=== PATIENT | female | born 1970 | race Caucasian/White ===

== ENCOUNTER → 2017-01-27 | Outpatient (CLI) | payer OTHER ==
--- NOTE | 2017-01-27 14:11 | MM ---
Reason for exam: screening (asymptomatic). Last mammogram was performed 1 year and 1 month ago. History: Family history of breast cancer in maternal grandmother at age 50 and breast cancer in maternal aunt at age 30. Retro-pectoral saline implants in both breasts, November 2004. Took hormonal contraceptives for 21 years beginning at age 17. Physical Findings: A clinical breast exam by your physician is recommended on an annual basis and results should be correlated with mammographic findings. MG 3D Screen Mammo Imp/Cad Bilateral CC, MLO, and ID view(s) were taken. Prior study comparison: December 15, 2015, bilateral MG 3d screen mammo imp/cad. December 11, 2014, bilateral MG diagnostic mammo w CAD SUZANNE. The breast tissue is heterogeneously dense. This may lower the sensitivity of mammography. No calcifications. Bilateral implants are intact. No significant changes when compared with prior studies. ASSESSMENT: Negative, BI-RAD 1 RECOMMENDATION: Routine screening mammogram of both breasts in 1 year.
== END | disposition home or self-care (01) ==
LOC: RADMAMWWP 06:56
PROVIDERS: ATTEND Obstetrics & Gynecology
DX: Z12.31 Encounter for screening mammogram for malignant neoplasm of breast (principal); Z80.3 Family history of malignant neoplasm of breast; Z98.82 Breast implant status
CPT/HCPCS: 77063; G0202

== ENCOUNTER → 2018-01-30 | Outpatient (CLI) | payer OTHER ==
--- NOTE | 2018-01-31 08:31 | MM ---
Reason for exam: screening (asymptomatic). Last mammogram was performed 1 year ago. History: Family history of breast cancer in maternal grandmother at age 50 and breast cancer in maternal aunt at age 30. Retro-pectoral saline implants in both breasts, November 2004. Took hormonal contraceptives for 21 years beginning at age 17. Physical Findings: A clinical breast exam by your physician is recommended on an annual basis and results should be correlated with mammographic findings. MG Screening Mammo Implant/CAD Bilateral CC, MLO, and ID view(s) were taken. Prior study comparison: January 27, 2017, bilateral MG 3d screen mammo imp/cad. December 15, 2015, bilateral MG 3d screen mammo imp/cad. The breast tissue is extremely dense which could obscure a lesion on mammography. There is no discrete abnormality. Bilateral subglandular implants. ASSESSMENT: Benign, BI-RAD 2 RECOMMENDATION: Routine screening mammogram of both breasts in 1 year.
== END | disposition home or self-care (01) ==
LOC: RADMAMWWP 06:58
PROVIDERS: ATTEND Obstetrics & Gynecology
DX: Z12.31 Encounter for screening mammogram for malignant neoplasm of breast (principal); Z98.82 Breast implant status
CPT/HCPCS: 77067

== ENCOUNTER → 2018-02-10 | Outpatient (CLI) | payer OTHER ==
--- NOTE | 2018-02-10 17:30 | US ---
EXAMINATION TYPE: US transvaginal DATE OF EXAM: 02/10/2018 COMPARISON: US CLINICAL HISTORY: N92.0 MENORRHAGIA. TECHNIQUE: Transvaginal (TV). Date of LMP: 01/26/2018 EXAM MEASUREMENTS: Uterus: 8.4 x 4.2 x 6.3 cm Endometrial Stripe: 0.5 cm Right Ovary: 2.8 x 1.7 x 1.5 cm Left Ovary: 3.9 x 2.5 x 3.7 cm 1. Uterus: Anteverted wnl 2. Endometrium: wnl 3. Right Ovary: wnl 4. Left Ovary: cyst measures 3.2 x 2.2 x 2.2 cm 5. Bilateral Adnexa: wnl 6. Posterior cul-de-sac: no free fluid IMPRESSION: Normal uterus and endometrium. 3 x 2 cm left ovarian cyst. No solid adnexal mass. No free fluid.
== END | disposition home or self-care (01) ==
LOC: RADUSWWP 16:53
PROVIDERS: ATTEND Obstetrics & Gynecology
DX: N83.202 Unspecified ovarian cyst, left side (principal)
CPT/HCPCS: 76830

== ENCOUNTER → 2019-02-01 | Outpatient (CLI) | payer OTHER ==
--- NOTE | 2019-02-02 11:33 | MM ---
Reason for exam: screening (asymptomatic). Last mammogram was performed 1 year ago. History: Family history of breast cancer in maternal grandmother at age 50 and breast cancer in maternal aunt at age 30. Retro-pectoral saline implants in both breasts, November 2004. Took hormonal contraceptives for 21 years beginning at age 17. Physical Findings: A clinical breast exam by your physician is recommended on an annual basis and results should be correlated with mammographic findings. MG 3D Screen Mammo Imp/Cad Bilateral CC, MLO, and ID view(s) were taken. Prior study comparison: January 30, 2018, bilateral MG screening mammo implant/CAD. January 27, 2017, bilateral MG 3d screen mammo imp/cad. The breast tissue is extremely dense which could obscure a lesion on mammography. Bilateral breast prothesis. No significant changes when compared with prior studies. ASSESSMENT: Benign, BI-RAD 2 RECOMMENDATION: Routine screening mammogram of both breasts in 1 year.
== END ==
LOC: RADMAMWWP 07:01
PROVIDERS: ATTEND Obstetrics & Gynecology
DX: Z12.31 Encounter for screening mammogram for malignant neoplasm of breast (principal)
CPT/HCPCS: 77063; 77067

== ENCOUNTER → 2019-05-04 | Outpatient (CLI) | payer OTHER ==
[2019-05-04 07:21] LABS: Basophils # (A) 0.1 k/uL (0-0.2); Basophils % (A) 1 %; Eosinophils # (A) 0.2 k/uL (0-0.7); Eosinophils % (A) 4 %; HCT 41.9 % (34.0-46.0); HGB 13.8 gm/dL (11.4-16.0); Lymphocytes # (A) 1.8 k/uL (1.0-4.8); Lymphocytes % (A) 38 %; MCH 32.9 pg (25.0-35.0); MCHC 32.9 g/dL (31.0-37.0); Mean Platelet Volume 7.6; Monocytes # (A) 0.4 k/uL (0-1.0); Monocytes % (A) 8 %; Neutrophils # (A) 2.2 k/uL (1.3-7.7); Neutrophils % (A) 46 %; Platelet Count 168 k/uL (150-450); RBC 4.19 m/uL (3.80-5.40); RDW 14.2 % (11.5-15.5); WBC 4.7 k/uL (3.8-10.6)
== END ==
LOC: LABPAT 06:55
PROVIDERS: ATTEND Obstetrics & Gynecology
DX: Z01.812 Encounter for preprocedural laboratory examination (principal)
CPT/HCPCS: 36415; 85025

== ENCOUNTER → 2019-05-08 | Outpatient (CLI) | payer OTHER | END | disposition home or self-care (01) | LOC: LABWHC1 17:19 | PROVIDERS: ATTEND Family Medicine | DX: Z11.2 Encounter for screening for other bacterial diseases (principal) | CPT/HCPCS: 36415; 86592; 86780 ==

== ENCOUNTER 2019-05-14 06:34 | Day surgery (SDC) | payer OTHER ==
[2019-05-08 15:08] VITALS: BMI 18.8
--- NOTE | 2019-05-13 12:07 | P.HPOB ---
History of Present Illness H&P Date: 05/13/19 Chief Complaint: Menorrhagia This patient is a pleasant 48 yr female with longstanding menorrhagia who is presenting for endometrial ablation. Evaluation has included an endometrial biopsy and ultrasound, both of which were normal. Partner has had a vasectomy and she has tried OCPs in the past. Review of Systems Genitourinary: Reports menorrhagia Past Medical History Past Medical History: Eye Disorder Additional Past Medical History / Comment(s): Dry eye. Recent episode of bilateral Iritis, was on eye drops. Back pain. POTS syndrome History of Any Multi-Drug Resistant Organisms: None Reported Past Surgical History: Breast Surgery, Hernia Repair Additional Past Surgical History / Comment(s): Umbilical hernia repair, inguinal hernia repair, breast augmentation, lasik eye surgery. Past Anesthesia/Blood Transfusion Reactions: No Reported Reaction Past Psychological History: No Psychological Hx Reported Smoking Status: Former smoker Past Alcohol Use History: Rare Additional Past Alcohol Use History / Comment(s): Smoked socially in high school, none since. Past Drug Use History: None Reported - Past Family History Father Family Medical History: Cancer Additional Family Medical History / Comment(s): Melanoma. Medications and Allergies Home Medications Medication Instructions Recorded Confirmed Type Multivitamins, Thera [Multivitamin 1 tab PO DAILY 05/08/19 05/08/19 History (formulary)] Allergies Allergy/AdvReac Type Severity Reaction Status Date / Time sulfamethoxazole Allergy Rash/Hives Verified 05/08/19 15:10 [From Bactrim] trimethoprim [From Bactrim] Allergy Rash/Hives Verified 05/08/19 15:10 Exam - OBG Physical Exam Abdomen: bowel sounds normal, no diffuse tenderness, no bruit present, no guarding noted, no hepatomegaly, no splenomegaly, no mass Vulva: both: normal Vagina: normal moisture, no discharge Cervix: no lesion, no discharge Uterus: normal size, normal contour Adnexa: both: normal Assessment and Plan Assessment: This is a pleasant 48 yr female with long standing menorrhagia requesting endometrial ablation for treatment. Plan is hysteroscopy, D&C, and Novasure endometrial ablation. I have discussed this surgery in detail with Yesenia including its risks: infection, bleeding, possible uterine perforation and/or thermal injury. All of her questions have been answered and a written consent obtained. (1) Menorrhagia Status: Acute Code(s): N92.0 - EXCESSIVE AND FREQUENT MENSTRUATION WITH REGULAR CYCLE SNOMED Code(s): 738728426
[~2019-05-14 06:34] MED LIST: DEXAMETHASONE SOD PHOSPHATE 10 MG/ML 1 ML VIAL IV ONE; LACTATED RINGERS 1,000 ML IV SCH; LIDOCAINE 1% 20 ML VIAL (10MG/ML) FOR IV START INTRADERMA PRN; MIDAZOLAM 2 MG/2 ML VIAL IV PRN; Pre Op ABX Message 1 EACH MISC MISCELLANE ONE; fentaNYL (PF) 50 MCG/ML 2 ML AMP IV PRN
[2019-05-14] MEDS ORDERED: KETOROLAC 30 MG/ML 1 ML VIAL ONE (07:19)
[2019-05-14] MEDS ORDERED: fentaNYL (PF) 50 MCG/ML 2 ML AMP ONE (07:19)
[2019-05-14] MEDS ORDERED: LIDOCAINE 1% INJ 10MG/ML (20 ML MDV) ONE (07:19)
[2019-05-14] MEDS ORDERED: PROPOFOL 10 MG/ML 20 ML VIAL IV ONE (07:19)
[2019-05-14] MEDS ORDERED: MIDAZOLAM 2 MG/2 ML VIAL ONE (07:19)
--- NOTE | 2019-05-14 07:56 | P.OP ---
Date of Procedure: 05/14/19 Preoperative Diagnosis: Menorrhagia Postoperative Diagnosis: Same Procedure(s) Performed: #1: Hysteroscopy. #2: Dilation and curettage. #3: NovaSure endometrial ablation. Anesthesia: other (LMA) Surgeon: Finesse Nascimento Estimated Blood Loss (ml): 10 Urine output (ml): 20 Pathology: other (Uterine curettings) Condition: stable Disposition: PACU Indications for Procedure: Please see dictated H&P for intimate details of this patient's admission. Brief summary this is a pleasant 48-year-old 2 para 2 female with long- standing menorrhagia requesting NovaSure endometrial ablation for treatment. Patient I discussed the surgery and risks including risks of infection, bleeding, possible uterine perforation, and/or thermal injury. All the patient's questions are answered and a written consent is obtained. Operative Findings: This patient had a normal-appearing intrauterine cavity. The uterus sounded to 9 cm. There is no evidence of intrauterine polyps, fibroids, or other growths. Description of Procedure: This patient is taken to the operating room where she is laid in the supine position. She subsequent undergoes general anesthesia without incident. With an adequate level of anesthesia she's placed in dorsal lithotomy position. She has a vaginal perineal prep and drape at this time. Examination under anesthesia shows a mid position uterus of normal size. I placed a weighted speculum posterior vagina. The bladder is drained for 20 mL of clear urine. An anterior lip of the cervix is then grasped with the Allis clamp. I did sound the uterus to 9 cm mid position. Gentle dilation is then done of the cervix to allow the hysteroscope easily and the uterine cavity. Using saline solution hysteroscopy is performed and the cavity length was calculated to be 6.0 cm. With this done the hysteroscope was then removed. Cervix dilated gently more to allow a small curette easily and the uterine cavity. A gentle but 4 quadrant curettage is done for adequate sampling. With this completed the NovaSure device is then opened and appears to be intact. I set at a length of 6.0 cm it is then gently seated into the uterine cavity it opens up to a width of 4.6 cm. Once seated in place I then activate the cavity integrity test and it passes. The NovaSure device is then enabled at 152 W setting and does operate for 121 seconds. With this done the NovaSure device is then removed and appears to be intact. Hysteroscopy is then performed again and the uterine cavity appears to be completely ablated up to the endocervix. At this point the procedure is ended. The Allis clamp and weighted speculum removed. All counts are correct 3. There are no complications. Patient is awakened from anesthesia and taken to the recovery room in satisfactory condition.
[2019-05-14 08:05] VITALS: TEMP 98
[2019-05-14 08:21] VITALS: RESP 16
[2019-05-14 08:55] VITALS: BP 117/80; PULSE 57
== END 2019-05-14 09:30 | disposition home or self-care (01) ==
LOC: OR 06:34
PROVIDERS: ATTEND Obstetrics & Gynecology
DX: N92.0 Excessive and frequent menstruation with regular cycle (principal); K21.9 Gastro-esophageal reflux disease without esophagitis; H20.9 Unspecified iridocyclitis; H04.129 Dry eye syndrome of unspecified lacrimal gland; M54.9 Dorsalgia, unspecified; I49.8 Other specified cardiac arrhythmias; Z87.891 Personal history of nicotine dependence; Z79.899 Other long term (current) drug therapy; Z88.2 Allergy status to sulfonamides; Z80.8 Family history of malignant neoplasm of other organs or systems
CPT/HCPCS: 58563; 81025; 88305; 84703; J2250; J1100; J2001; J3010; J1885; J2704

== ENCOUNTER → 2020-06-17 | Outpatient (CLI) | payer OTHER ==
--- NOTE | 2020-06-17 10:07 | MM ---
Reason for exam: screening (asymptomatic). Last mammogram was performed 1 year and 4 months ago. History: Family history of breast cancer in maternal grandmother at age 50 and breast cancer in maternal aunt at age 30. Retro-pectoral saline implants in both breasts, November 2004. Took hormonal contraceptives for 21 years beginning at age 17. Physical Findings: A clinical breast exam by your physician is recommended on an annual basis and results should be correlated with mammographic findings. MG 3D Screen Mammo Imp/Cad Bilateral CC, MLO, and ID view(s) were taken. Prior study comparison: February 01, 2019, bilateral MG 3d screen mammo imp/cad. January 30, 2018, bilateral MG screening mammo implant/CAD. The breast tissue is extremely dense which could obscure a lesion on mammography. There is no discrete abnormality. Bilateral subpectoral implants redemonstrated. ASSESSMENT: Benign, BI-RAD 2 RECOMMENDATION: Routine screening mammogram of both breasts in 1 year.
== END | disposition home or self-care (01) ==
LOC: RADMAMWWP 06:57
PROVIDERS: ATTEND Obstetrics & Gynecology
DX: Z12.31 Encounter for screening mammogram for malignant neoplasm of breast (principal)
CPT/HCPCS: 77063; 77067

== ENCOUNTER → 2021-01-01 | Outpatient (CLI) | payer OTHER ==
--- NOTE | 2021-01-01 12:21 | US ---
EXAMINATION TYPE: US groin LT DATE OF EXAM: 01/01/2021 COMPARISON: NONE CLINICAL HISTORY: R59.0 LOCALIZED ENLARGED LYMPH NODES. patient had larger palpable on the right groi n and small on th left groin Soft tissue scan of right and left groin done for comparison. Normal appearing lymph nodes seen bilat erally. Right groin produced a 1.7 x 2.0 x 0.6cm lymph node with fatty hilum. Left groin lymph node = 1.6 x 0.9 x 0.6cm. IMPRESSION: 1. Inguinal adenopathy
--- NOTE | 2021-01-02 07:55 | US ---
EXAMINATION TYPE: US pelvic complete DATE OF EXAM: 01/01/2021 COMPARISON: NONE CLINICAL HISTORY: R59.0 LOCALIZED ENLARGED LYMPH NODES. back pain, , h/o cysts, ablation TECHNIQUE: TA. Transabdominal sonographic images of the pelvis were acquired. Date of LMP: 3yrs ago, ablation EXAM MEASUREMENTS: Uterus: 7.9 x 6.3 x 3.3 cm Endometrial Stripe: not discernable Right Ovary: 3.7 x 3.3 x 2.4 cm Left Ovary: 2.1 x 2.2 x 1.6 cm 1. Uterus: Anteverted wnl 2. Endometrium: h/o ablation, unable to discern canal, patient was not symptomatic 3. Right Ovary: 2.3 x 2.0 x 2.3cm simple cyst seen 4. Left Ovary: wnl 5. Bilateral Adnexa: wnl 6. Posterior cul-de-sac: wnl IMPRESSION: 1. Endometrial canal is indistinct post ablation. 2. Right ovarian cyst
== END ==
LOC: RADUSWWP 11:04
PROVIDERS: ATTEND Family Medicine
DX: N83.201 Unspecified ovarian cyst, right side (principal); R59.0 Localized enlarged lymph nodes
CPT/HCPCS: 76856

== ENCOUNTER → 2021-07-29 | Outpatient (CLI) | payer OTHER ==
--- NOTE | 2021-07-30 14:21 | MM ---
Reason for exam: screening (asymptomatic). Last mammogram was performed 1 year and 1 month ago. History: Family history of breast cancer in maternal grandmother at age 50 and breast cancer in maternal aunt at age 30. Retro-pectoral saline implants in both breasts, November 2004. Took hormonal contraceptives for 21 years beginning at age 17. Physical Findings: A clinical breast exam by your physician is recommended on an annual basis and results should be correlated with mammographic findings. MG 3D Screen Mammo Imp/Cad Bilateral CC, MLO, and ID view(s) were taken. Prior study comparison: June 17, 2020, bilateral MG 3d screen mammo imp/cad. February 01, 2019, bilateral MG 3d screen mammo imp/cad. The breast tissue is heterogeneously dense. This may lower the sensitivity of mammography. Bilateral breast prothesis. No significant changes when compared with prior studies. ASSESSMENT: Benign, BI-RAD 2 RECOMMENDATION: Routine screening mammogram of both breasts in 1 year.
== END | disposition home or self-care (01) ==
LOC: RADMAMWWP 07:02
PROVIDERS: ATTEND Obstetrics & Gynecology
DX: Z12.31 Encounter for screening mammogram for malignant neoplasm of breast (principal); Z80.3 Family history of malignant neoplasm of breast
CPT/HCPCS: 77063; 77067

== ENCOUNTER → 2022-08-06 | Outpatient (CLI) | payer OTHER ==
--- NOTE | 2022-08-09 08:19 | MM ---
Reason for Exam: Hx of breast augmentation, asymptomatic. Last screening mammogram was performed 12 month(s) ago. Patient History: Menarche at age 16. First Full-Term at age 28. Hormonal Contraceptives, starting at age 17 for 21 years. 11/2004, Bilateral Implants. Maternal grandmother had breast cancer, age 50. Maternal aunt had breast cancer, age 30. Risk Values: Delphine 5 year model risk: 1.0%. NCI Lifetime model risk: 9.1%. Prior Study Comparison: 02/01/2019 Bilateral Screening Mammogram, [facility]. 06/17/2020 Bilateral Screening Mammogram, [facility]. 07/29/2021 Bilateral Screening Mammogram, [facility]. Tissue Density: The breast tissue is heterogeneously dense. This may lower the sensitivity of mammography. Findings: Analyzed By CAD. There is no suspicious group of microcalcifications or new suspicious mass in either breast. Bilateral implants are intact. Overall Assessment: Benign, BI-RAD 2 Management: Screening Mammogram of both breasts in 1 year. A clinical breast exam by your physician is recommended on an annual basis and results should be correlated with mammographic findings. Electronically signed and approved by: Tam Molina M.D. Radiologis
== END | disposition home or self-care (01) ==
LOC: RADMAMWWP 12:35
PROVIDERS: ATTEND Obstetrics & Gynecology
DX: Z12.31 Encounter for screening mammogram for malignant neoplasm of breast (principal); Z80.3 Family history of malignant neoplasm of breast
CPT/HCPCS: 77063; 77067

== ENCOUNTER → 2023-09-06 | Outpatient (CLI) | payer OTHER ==
--- NOTE | 2023-09-06 10:12 | MM ---
Reason for Exam: Screening (asymptomatic). Last mammogram was performed 1 year(s) and 1 month(s) ago. Patient History: Menarche at age 16. First Full-Term at age 28. Hormonal Contraceptives, starting at age 17 for 21 years. 11/2004, Bilateral Implants. Maternal grandmother had breast cancer, age 50. Maternal aunt had breast cancer, age 30. Risk Values: Delphine 5 year model risk: 1.0%. NCI Lifetime model risk: 8.9%. Prior Study Comparison: 06/17/2020 Bilateral Screening Mammogram, [facility]. 07/29/2021 Bilateral Screening Mammogram, [facility]. 08/06/2022 Bilateral MG 3D screening mammo w/cad, [facility]. Tissue Density: There are scattered fibroglandular densities. Findings: Analyzed By CAD. Bilateral breast implants appear intact. There is no suspicious group of microcalcifications or new suspicious mass. Overall Assessment: Negative, BI-RAD 1 Management: Screening Mammogram of both breasts in [address] [facility] will attempt to contact patient to return for supplemental views and ultrasound if indicated. Patient should continue monthly self-breast exams. A clinical breast exam by your physician is recommended on an annual basis. This exam should not preclude additional follow-up of suspicious palpable abnormalities. Note on Delphine scores and lifetime risk: 1. A Delphine score greater than 3% is considered moderate risk. If this is the case, consider specialist referral to assess eligibility for a risk reducing agent. 2. If overall lifetime risk for the development of breast cancer is 20% or higher, the patient may qualify for future screening with alternating mammogram and breast MRI. Electronically signed and approved by: Rian Osorio DO
== END | disposition home or self-care (01) ==
LOC: RADMAMWWP 06:55
PROVIDERS: ATTEND Obstetrics & Gynecology
DX: Z12.31 Encounter for screening mammogram for malignant neoplasm of breast (principal); Z80.3 Family history of malignant neoplasm of breast; Z98.82 Breast implant status
CPT/HCPCS: 77063; 77067

== ENCOUNTER → 2024-07-24 | Outpatient (CLI) | payer OTHER ==
--- NOTE | 2024-07-25 06:22 | MR ---
EXAMINATION TYPE: MR angio head wo con DATE OF EXAM: 07/24/2024 COMPARISON: None HISTORY: Family history of aneurysm of brain, forgetful TECHNIQUE: Time of flight images focusing on the [place] were performed without contrast. FINDINGS: There is no evidence for focal stenosis, large vessel occlusion, or discrete aneurysm. IMPRESSION: No evidence for focal stenosis, occlusion or aneurysm. [facility], , 07/25/2024 6:19 AM
== END | disposition home or self-care (01) ==
LOC: RADMRIMAIN 17:39
PROVIDERS: ATTEND Family Medicine
DX: Z82.49 Family history of ischemic heart disease and other diseases of the circulatory system (principal)
CPT/HCPCS: 70544

== ENCOUNTER → 2024-09-10 | Outpatient (CLI) | payer OTHER ==
--- NOTE | 2024-09-10 08:14 | MM ---
Reason for Exam: Screening (asymptomatic). Last screening mammogram was performed 12 month(s) ago. Patient History: Menarche at age 16. First Full-Term at age 28. Patient has history of breast feeding. Currently using Estrogen, starting at age 53. Currently using Progesterone, starting at age 53. Hormonal Contraceptives, starting at age 17 for 21 years. 11/2004, Bilateral Implants. Maternal grandmother had breast cancer, age 50. Maternal aunt had breast cancer, age 30. Risk Values: Delphine 5 year model risk: 1.1%. NCI Lifetime model risk: 8.8%. Prior Study Comparison: 01/27/2017 Bilateral Screening Mammogram, [facility]. 01/30/2018 Bilateral Screening Mammogram, [facility]. 02/01/2019 Bilateral Screening Mammogram, [facility]. 06/17/2020 Bilateral Screening Mammogram, [facility]. 07/29/2021 Bilateral Screening Mammogram, [facility]. 08/06/2022 Bilateral MG 3D screening mammo w/cad, [facility]. 09/06/2023 Bilateral MG 3D screen mammo imp/cad., [facility]. Tissue Density: The breasts are heterogeneously dense, which may obscure small masses. Findings: Analyzed By CAD. There is no suspicious group of microcalcifications or new suspicious mass in either breast. Bilateral breast implant surgery. Overall Assessment: Benign, BI-RAD 2 Management: Screening Mammogram of both breasts in 1 year. . Patient should continue monthly self-breast exams. A clinical breast exam by your physician is recommended on an annual basis. This exam should not preclude additional follow-up of suspicious palpable abnormalities. Note on Delphine scores and lifetime risk: 1. A Delphine score greater than 3% is considered moderate risk. If this is the case, consider specialist referral to assess eligibility for a risk reducing agent. 2. If overall lifetime risk for the development of breast cancer is 20% or higher, the patient may qualify for future screening with alternating mammogram and breast MRI. [facility], , 09/10/2024 8:11 AM. Electronically signed and approved by: Deon Burdick M.D. Radiologis
== END | disposition home or self-care (01) ==
LOC: RADMAMWWP 07:01
PROVIDERS: ATTEND Obstetrics & Gynecology
DX: Z12.31 Encounter for screening mammogram for malignant neoplasm of breast (principal); Z80.3 Family history of malignant neoplasm of breast; R92.333 Mammographic heterogeneous density, bilateral breasts
CPT/HCPCS: 77063; 77067

== ENCOUNTER → 2024-09-28 | Day surgery (SDC) | payer OTHER ==
[2024-09-26 17:43] VITALS: BMI 18.8
[~2024-09-28] MED LIST changes: -DEXAMETHASONE SOD PHOSPHATE 10 MG/ML 1 ML VIAL IV ONE; -LACTATED RINGERS 1,000 ML IV SCH; +LIDOCAINE 1% (10MG/ML) FOR IV START INTRADERMA PRN; -LIDOCAINE 1% 20 ML VIAL (10MG/ML) FOR IV START INTRADERMA PRN; +LIDOCAINE 1% INJ 10MG/ML (20 ML MDV) ONE; -MIDAZOLAM 2 MG/2 ML VIAL IV PRN; +PROPOFOL 10 MG/ML 20 ML VIAL IV ONE; -Pre Op ABX Message 1 EACH MISC MISCELLANE ONE; -fentaNYL (PF) 50 MCG/ML 2 ML AMP IV PRN
[2024-09-28 14:23] VITALS: RESP 16; TEMP 97.3
[2024-09-28] MEDS: DEXAMETHASONE SOD PHOSPHATE 4 MG/ML 1 ML VIAL IVP STA (14:33)
[2024-09-28] MEDS: ONDANSETRON 4 MG/2 ML VIAL IVP STA (14:34)
[2024-09-28] MEDS: LACTATED RINGERS 1,000 ML IV SCH (14:37)
[2024-09-28] MEDS: IV FLUID CONTINUATION 1,000 ML IV ONE ×2 (14:38→14:52)
--- NOTE | 2024-09-28 15:11 | P.PCN ---
Date of Procedure: 09/28/24 Procedure(s) Performed: BRIEF HISTORY: Patient is a 53-year-old pleasant white female scheduled for an elective colonoscopy as a part of screening for colon cancer. PROCEDURE PERFORMED: Colonoscopy. PREOPERATIVE DIAGNOSIS: Screening for colon cancer. IV sedation per Anesthesia. PROCEDURE: After informed consent was obtained, the patient, was brought into the endoscopy unit. IV sedation was administered by Anesthesia under continuous monitoring. Digital rectal examination was normal. Initially the Olympus CF-160 flexible video colonoscope was then inserted in the rectum, gradually advanced into the cecum without any difficulty. Careful examination was performed as the scope was gradually being withdrawn. Ileocecal valve and the appendiceal orifice were visualized and appeared normal. Prep was excellent. Mucosa of the cecum, ascending colon, transverse colon, descending colon, sigmoid colon, and rectum appeared normal. Retroflexion was performed in the rectum and no lesions were seen. The patient tolerated the procedure well. IMPRESSION: Normal-appearing colon from rectum to cecum no evidence of colorectal neoplasia. RECOMMENDATIONS: Findings of this examination were discussed with the patient as well as her family. She was advised to have repeat screening colonoscopy in 10 years.
[2024-09-28 15:48] VITALS: BP 105/67; PULSE 72
== END ==
LOC: ORWHC2ENDO 12:19
PROVIDERS: ATTEND Internal Medicine Gastroenterology
DX: Z12.11 Encounter for screening for malignant neoplasm of colon (principal); G90.A Postural orthostatic tachycardia syndrome [POTS]; Z88.2 Allergy status to sulfonamides; Z88.1 Allergy status to other antibiotic agents; Z79.899 Other long term (current) drug therapy
CPT/HCPCS: 81025; 45378; J1100; J2405; J2003; J2704